=== PATIENT | male | born 1955 | race Caucasian/White ===

== ENCOUNTER 2025-03-10 09:03 | Outpatient (REF) | payer MEDICARE, SELFPAY ==
[2025-03-10 14:01] VITALS: BP 150/71; PULSE 52; RESP 16; O2SAT 97; BMI 21.0
== END 2025-03-10 09:04 | disposition home or self-care (01) ==
LOC: HO.MS 09:03
PROVIDERS: PCP Internal Medicine; Visit Provider Ophthalmology
PROC: (CPT 67840; principal; 2025-03-10 13:10)
DX: L57.0 Actinic keratosis (principal)
CPT/HCPCS: 67840 ×2; 88304; 88305; J2004